=== PATIENT | male | born 1990 | race Caucasian/White ===

== ENCOUNTER 2018-05-06 11:31 | Inpatient (IN) ==
[2018-05-06] MEDS: Ketorolac 30 MG/ML VIAL IVP PRN ×2 (14:54→20:56)
--- NOTE | 2018-05-06 16:40 | Pulmonology Consult Note ---
Date of Encounter: 05/06/18 Time of Encounter: 15:45 Assessment and Plan (1) Pneumothorax, acute Current Visit: Yes Status: Acute Patient with spontaneous pneumothorax and I have seen him and examined him in the presence of the nurse and also his family and advised him this is life- threatening if it does not get treated especially with tension pneumothorax and at this time is connected to the chest tube chamber and stat CT chest was done and reviewed with evidence of pneumothorax to continue chest tube on suction at this time and we may need to consult cardiothoracic if his pneumothorax does not improve. He also may need a larger chest tube if no improvement. No evidence of acute distress and suspect there is underlying emphysema and he will need alpha- 1 antitrypsin level to be checked when he is stable and will start him on bronchodilators. This was discussed with primary team and thank you for consultation. (2) Tobacco abuse Current Visit: Yes Status: Chronic Advised patient to quit smoking. (3) Tobacco abuse counseling Current Visit: Yes Status: Chronic History of Present Illness Consult date: 05/06/18 Requesting physician: Jose Luis Lewis Reason for consult: pneumothorax Chief complaint: Spontaneous pneumothorax History of present illness: This is 27 years old male with significant history of smoking tobacco and he is poor historian all presented to the hospital after he was found to have spontaneous pneumothorax and he stated he had severe chest pain with dyspnea and was not able to breathe and he went to [facility] where he had a chest tube placed and he then signed AGAINST MEDICAL ADVICE and went home on a flutter valve and subsequently he was admitted to [facility]. When I saw him he had his chest tube in place and then I connected his chest tube to water chest tube atrium and there was significant air leak in the beginning. Patient denies any significant chest pain at this time and he denies any previous history of spontaneous pneumothorax. He denies any significant wheezing and no history of trauma. He denies any significant productive cough. Past Med Surg Social Fam HX - Past Medical History Medical history: hepatitis Psychiatric history: bipolar, schizophrenia - Past Surgical History Additional surgical history: B/L knees, face and neck - Social History Smoking Status: Current every day smoker Packs per day: 1/4 Smokeless Tobacco Status: No Alcohol use: occasionally Drug use: none - Family History Mother History Unknown: Yes Father Living Status: Still Living Hx Family Endocrine Disorder: Yes (DM) Medications and Allergies Allergy/AdvReac Type Severity Reaction Status Date / Time Amoxicillin Allergy Unknown See Verified 05/06/18 14:45 Comments All Systems: The remainder of the systems were reviewed and are negative Physical Examination Vital Signs: Vital Signs, Last 4 Hours Temp Pulse Resp BP Pulse Ox 05/06/18 15:57 97.7 F 105 16 131/79 100 05/06/18 13:29 98.7 F 86 18 126/56 99 General: Patient is in no acute distress. HEENT: Normocephalic atraumatic, pupils are equal round and reactive to light and accommodation, anicteric sclera, nares is patent, mucous membranes moist, no JVD, trachea is midline Cardiovascular: Normal sinus rhythm, S1 and S2 audible, no murmur or rubs Respiratory: Clear to auscultation in the left side and diminished mainly in the upper lung zone in the right side. No acute distress. No wheezing. Patient not using accessory muscles. Small bore chest tube anteriorly in the right side. Abdomen: Soft, nontender, nondistended, positive bowel sounds in all 4 quadrants Extremities: Warm, dry, no lower extremity edema. Normal capillary refill. Neuro: Alert and oriented and follows commands. Grossly no neuro deficits. Skin: Warm to touch : No obvious abnormalities. Psych: Normal Results - Diagnostic Findings CT scan - chest: report reviewed, image reviewed - Clinical Findings Intake & Output: Intake & Output 05/06/18 05/06/18 05/06/18 07:59 15:59 23:59 Weight 68.5 kg Consult Discharge Plan - Plan Referrals: NONE,PCP [Primary Care Provider] -
[2018-05-06] MEDS ORDERED: Naloxone 0.4 MG/ML INJ IVP PRN (16:49)
[2018-05-06 18:28] LABS: Amphetamine Screen,Urine Positive ng/mL (Cutoff=1000); Barbiturate Screen,Urine Negative ng/mL (Cutoff=200); Benzodiazepines Screen,Urine Negative ng/mL (Cutoff=200); Cannabinoid Screen,Urine Negative ng/mL (Cutoff = 50); Cocaine Screen,Urine Negative ng/mL (Cutoff= 300); Opiate Screen,Urine Positive ng/mL (Cutoff=300); Phencyclidine Screen,Urine Negative ng/mL (Cutoff=25)
--- NOTE | 2018-05-06 19:24 | Internal Med History&Physical ---
Date of Encounter: 05/06/18 Time of Encounter: 16:00 Internal Medicine - H&P: HPI Admitted From: Hospital to Hospital Transfer Plans for Post Hospital Care: Home History of present illness: Patient is a 27-year-old male with IV drug abuse history and a smoker who presents from [facility] for management of spontaneous pneumothorax. Patient reports of a one-day history of sudden right chest pain which is worse with inspiration and is intermittent. Patient was concerned so decided to go to the ER for evaluation. At [facility], patient was found to have a pneumothorax where he had a chest tube placed and he then signed AGAINST MEDICAL ADVICE and went home on a flutter valve and subsequently he was admitted to [facility]. Pulmonology consulted for recommendations after patients arrival here to [facility]. Past Med Surg Social Fam HX - Past Medical History Medical history: hepatitis Psychiatric history: bipolar, schizophrenia - Past Surgical History Additional surgical history: B/L knees, face and neck - Social History Smoking Status: Current every day smoker Packs per day: / Smokeless Tobacco Status: No Alcohol use: occasionally Drug use: none - Family History Mother History Unknown: Yes Father Living Status: Still Living Hx Family Endocrine Disorder: Yes (DM) Internal Medicine - H&P: Meds Allergy/AdvReac Type Severity Reaction Status Date / Time Amoxicillin Allergy Unknown See Verified 05/06/18 14:45 Comments All Systems PM: A 10-system review of systems was performed and is negative for pertinent findings except as documented above in the HPI. - Constitutional Vitals: Temp Pulse Resp BP Pulse Ox 97.7 F 105 16 131/79 100 05/06/18 15:57 05/06/18 15:57 05/06/18 15:57 05/06/18 15:57 05/06/18 15:57 General appearance: Present: A&O X 3, no acute distress Exam: As above - Eye Eye exam: Present: normal appearance - ENT ENT exam: Present: mucous membranes moist - Respiratory Respiratory exam: Present: CTAB. Absent: accessory muscle use, rales, rhonchi, wheezes - Cardiovascular Cardiovascular exam: Present: RRR, +S1, +S2. Absent: diastolic murmur, gallop, rubs, systolic murmur - GI/Abdominal GI/Abdominal exam: Present: normal bowel sounds, soft, no peritoneal signs. Absent: distended, tenderness - Extremities Exam Extremities exam: Absent: pedal edema - Neurological Exam Neurological exam: Present: oriented X3 - Psychiatric Psychiatric exam: Present: agitated - Skin Skin exam: Present: normal color Internal Med - H&P Results - Impressions ITS Impressions Chest CT 05/06/18 15:15 IMPRESSION: Small to moderate size right pneumothorax. Thin bore right chest tube is present and terminates in the anterior pleural space. D/ / Gabino Ha MD / Gabino Ha MD Interpreting Provider: Gabino Ha MD - Assessment and plan (1) Pneumothorax, acute Current Visit: Yes Status: Acute Assessment and plan: CT of the chest revealed evidence of pneumothorax Pulmonology consulted with recommendations to continue chest tube on suction Consideration for consult to cardiothoracic specialist if pneumothorax does not improve (2) Methamphetamine abuse Current Visit: Yes Status: Acute Assessment and plan: Patient urine drug tox screen positive for amphetamines We will be careful with opioid medications due to history of drug abuse (3) Tobacco abuse Current Visit: Yes Status: Chronic Assessment and plan: Smoking cessation - Time Spent With Patient Total time spent is greater than 50% in coordination of care (as documented) at patient's floor/unit and/or counseling patient:
[2018-05-06] MEDS: Ipratropium/Albuterol Neb 3 ML IH SCH (22:13)
[2018-05-07] MEDS: Ipratropium/Albuterol Neb 3 ML IH SCH ×3 (04:07→16:24)
[2018-05-07] MEDS: Ketorolac 30 MG/ML VIAL IVP PRN ×2 (05:49→15:13)
[2018-05-07 05:58] LABS: Basophils % 0.3 %; Eosinophils # 0.3 K/mcL (0.0-0.6); Eosinophils % 3.4 %; Hematocrit 42.4 % (37.5-50.1); Hemoglobin 14.8 g/dL (12.9-16.9); Immature Granulocytes % 0.1 % (0-4); Lymphocytes # 2.3 K/mcL (0.6-4.6); Lymphocytes % 31.6 %; Mean Corpuscular HGB Conc 34.9 g/dL (31.6-35.5); Mean Corpuscular Hemoglobin 29.9 pg (28.0-33.3); Mean Corpuscular Volume 85.7 fL (83.0-100.0); Mean Platelet Volume 10.8 fL (9.4-12.4); Monocytes # 0.9 K/mcL (0.0-1.3); Neutrophils # 3.9 K/mcL (1.6-8.9); Platelet Count 177 K/mcL (140-400); Red Blood Count 4.95 M/mcL (4.19-5.50); Red Cell Distribution Width 12.5 % (11.5-14.5); Segmented Neutrophils % 52.6 %
[2018-05-07 06:15] LABS: BUN/Creatinine Ratio 13 (6-26); Blood Urea Nitrogen 9 mg/dL (6-20); Calcium 9.3 mg/dL (8.6-10.3); Carbon Dioxide 26 mEq/L (23-29); Chloride 106 mEq/L (98-107); Glucose 91 mg/dL (70-105); Osmolality,Calculated 284 (280-300); Potassium 3.7 mEq/L (3.5-5.1); Sodium 138 mEq/L (136-145); eGFR For Non-African Americans > 60 (> 60)
--- NOTE | 2018-05-07 08:30 | Pulmonology Progress Note ---
<Ariana Pierson - Last Filed: 05/07/18 20:14> Date of Encounter: 05/07/18 Time of Encounter: 10:30 Assessment and Plan (1) Pneumothorax, acute Current Visit: Yes Status: Acute Afebrile, hemodynamically stable, SpO2 100% RA Chest tube hooked to wall suction Right chest tube shows small amount of purulent material within catheter Paraseptal emphysema is a possible etiology CT Chest 05/06: small to moderate right pneumothorax, small bore catheter in right anterior pleural space CXR #1 05/07: increased right apical pneumothorax 2.1cm --> 4.6cm, no pleural effusion or new focal consolidation CXR #2 05/07: slight decrease in right apical pneumothorax Plan: Dr. Glasgow of CT surgery consulted and will see this patient, recommendations appreciated Repeat CXR tomorrow morning (2) Tobacco abuse Current Visit: Yes Status: Chronic Subjective Principal diagnosis: spontaneous pneumothorax, right sided Interval history: Seen and examined at bedside. Female visitor left room just prior to my arrival. Denies shortness of breath or difficulty breathing; no fevers or chills. Reports chest pain which he relates to position of his chest tube. He is upset to learn his pneumothorax has increased in size on this morning's CXR as compared to yesterday's chest CT--patient states he will just leave if we aren't doing anything to help fix his pneumothorax and are only making it worse. He is frustrated that a second chest tube or chest tube of larger size may be needed and is angry the correctly sized chest tube wasn't inserted in the first place. I explained that if he were to leave AMA he risks worsening pneumothorax and may vary well as a result. Objective PUL Vital signs: Last Vital Signs Temp 98.1 F 05/07/18 06:45 Pulse 78 05/07/18 06:45 Resp 17 05/07/18 06:45 BP 128/73 05/07/18 06:45 Pulse Ox 99 05/07/18 06:45 General appearance: no acute distress, alert Eyes: nonicteric ENT: oropharynx moist Neck: supple Effort: normal Auscultation: right: diminished breath sounds, bilateral: clear Cardiovascular: regular rate and rhythm Gastrointestinal: normoactive bowel sounds Extremities: no cyanosis, no edema, pink and warm normal mental status, non-focal exam, pupils equal and round, CN II-XII normal Results - Laboratory Findings CBC and BMP: 05/07/18 05:43 05/07/18 05:43 Abnormal lab findings: Abnormal lab results Urine Opiates Screen Positive ng/mL (Uuxhhu=[id number]) H 05/06/18 18:14 Ur Amphetamines Screen Positive ng/mL (Kryjqd=[id number]) H 05/06/18 18:14 Consult Discharge Plan - Plan Referrals: NONE,PCP [Primary Care Provider] - <Courtney Walker - Last Filed: 05/08/18 13:03> Assessment and Plan (1) Pneumothorax, acute Current Visit: Yes Status: Acute (2) Tobacco abuse Current Visit: Yes Status: Chronic (3) Tobacco abuse counseling Current Visit: Yes Status: Chronic Objective PUL Vital signs: Last Vital Signs Temp 97.4 F L 05/07/18 11:02 Pulse 87 05/07/18 11:02 Resp 16 05/07/18 11:02 BP 127/76 05/07/18 11:02 Pulse Ox 100 05/07/18 11:02 Results - Laboratory Findings CBC and BMP: 05/07/18 05:43 05/07/18 05:43 Abnormal lab findings: Abnormal lab results Urine Opiates Screen Positive ng/mL (Dbyear=329) H 05/06/18 18:14 Ur Amphetamines Screen Positive ng/mL (Wwabag=[id number]) H 05/06/18 18:14 - Clinical Findings Intake & Output: Intake & Output 05/06/18 05/07/18 05/07/18 23:59 07:59 15:59 Intake Total 120 / 120 Balance 120 / 120 - Attending Attestation Patient was seen on 05/07/2018 and addendum was done 05/08/2018 I examined this patient and my medical decision-making was reviewed with the Resident Physician. I agree with the documented findings, disposition and treatment plan as described except to the extent set forth below. Patient seen and examined. Labs, radiology, chart personally reviewed. Agree with resident's history and physical, assessment, plan with following comments: [employer]: Patient follows commands, Pulmonary: Acceptable oxygenation and ventilation. Patient still requiring chest tube and need suction since he did not tolerate waterseal. A trial of waterseal was done and it showed evidence of worsening of his pneumothorax and he was placed back on suction and repeat chest x-ray showed some improvement. Patient is asking to go home and to remove his chest tube and explained to him that is not advisable and this could be fatal. Cardiothoracic was consulted.
[2018-05-07] MEDS: OXYCODONE Oral CONC 10 MG/0.5 ML ORAL.SYG SL PRN ×3 (10:45→23:54)
[2018-05-07] MEDS: Sulfamethoxazole/Trimeth DS 1 EACH TABLET PO SCH ×2 (11:31→21:27)
--- NOTE | 2018-05-07 11:51 | Internal Med Progress Note ---
Hospitalist Progress Note - Encounter Date of Encounter: 05/07/18 Time of Encounter: 11:45 - Subjective Interval History: Patient is a 27-year-old male with IV drug abuse history and a smoker who presents from [facility] for management of spontaneous pneumothorax. Patient reports of a one-day history of sudden right chest pain which is worse with inspiration and is intermittent. Patient was concerned so decided to go to the ER for evaluation. At [place] [facility], patient was found to have a pneumothorax where he had a chest tube placed and he then signed AGAINST MEDICAL ADVICE and went home on a flutter valve and subsequently he was admitted to [facility]. Pulmonology consulted for recommendations after patients arrival here to [facility]. Patient was admitted on 05/06, he has right chest tube placed, pulmonary was consulted, chest x-ray showed a worsening pneumothorax from 2.1 cm up to 4.6 cm. Pulmonary consulted to Dr. Glasgow CT surgery for further recommendations. Patient is very agitated this morning, he complains of chest pain from chest tube 10 out of 10 since 3 AM persistently. IV Toradol is not working. He wants to remove the chest tube, and leave against medical advance, I discussed the risk of from worsening pneumothorax by leave AMA, And discussed with pain control using oral oxycodone he agrees tostay and gets 2nd CXR.. - Exam Vitals: Temp Pulse Resp BP Pulse Ox 97.4 F L 87 16 127/76 100 05/07/18 11:02 05/07/18 11:02 05/07/18 11:02 05/07/18 11:02 05/07/18 11:02 Exam: CONSTITUTIONAL: patient appears as an age appropriate male in no acute distress. EYES Clear sclerae, bilateral pupils are equal, reactive to light. EMOI. RESPIRATORY: No accessory muscle use, bilateral clear to auscultation, no wheezing, no crackles/rales. CARDIOVASCULAR: Regular heart rate, normal S1 and S2, no murmurs GASTROINTESTINAL: bowel sounds present, soft, no tenderness. MUSCULOSKELETAL: Joints in normal range of motion, no clubbing, no edema, no cyanosis. Bilateral peripheral pulses 2+. NEUROLOGIC: CN II to XII are grossly intact, no focal neurological deficit. - Assessment and Plan (1) Pneumothorax, acute Current Visit: Yes Status: Acute Assessment and Plan: Complaining of chest pain from chest tube area, pulmonary is following and the CT surgery is consulted as well CT Chest 05/06: small to moderate right pneumothorax, small bore catheter in right anterior pleural space CXR this moring showed increased right apical pneumothorax 2.1cm --> 4.6cm, patient is on RA Pain control, add oral oxycodone (2) Tobacco abuse Current Visit: Yes Status: Chronic Assessment and Plan: add nicotine patch (3) Methamphetamine abuse Current Visit: Yes Status: Acute (4) Open wound of right hand Current Visit: Yes Status: Acute Assessment and Plan: draing clear fluid, add bactrim to prevent infection, he is able to move finger joint - Time Spent with Patient Total time spent is greater than 50% in coordination of care (as documented) at patient's floor/unit and/or counseling patient: 25 - 35 minutes Internal Medicine: Result - Labs CBC & Chem 7: 05/07/18 05:43 05/07/18 05:43 Labs: Short CBC 05/07/18 Range/Units 05:43 WBC 7.3 (4.3-11.1) K/mcL Hgb 14.8 (12.9-16.9) g/dL Hct 42.4 (37.5-50.1) % Plt Count 177 (140-400) K/mcL Neutrophils # 3.9 (1.6-8.9) K/mcL BMP 05/07/18 05:43 Sodium 138 Potassium 3.7 Chloride 106 Carbon Dioxide 26 BUN 9 Creatinine 0.72 Glucose 91 Calcium 9.3 - Impressions Impressions Chest CT 05/06/18 15:15 IMPRESSION: Small to moderate size right pneumothorax. Thin bore right chest tube is present and terminates in the anterior pleural space. D/ / Gabino Ha MD / Gabino Ha MD Interpreting Provider: Gabino Ha MD Chest X-Ray 05/07/18 07:40 IMPRESSION: Right apical pneumothorax minimally increased in size when compared to the prior CT measuring up to 4.6 cm from the right apex, previously 2.1 cm. D/ / Amber Gage MD / Amber Gage MD Interpreting Provider: Amber Gage MD Chest X-Ray 05/07/18 10:08 IMPRESSION: Slight decrease in the right apical pneumothorax D/ / Jose Angel Wiseman MD / Jose Angel Wiseman MD Interpreting Provider: Jose Angel Wiseman MD Consult Discharge Plan - Plan Referrals: NONE,PCP [Primary Care Provider] - (4) Open wound of right hand Qualifiers: Encounter type: initial encounter Open wound type: unspecified Foreign body presence: unspecified Qualified Code(s): S61.401A - Unspecified open wound of right hand, initial encounter
--- NOTE | 2018-05-07 13:14 | Cardiothoracic Consult Note ---
Date of Encounter: 05/07/18 Time of Encounter: 13:11 Assessment and Plan (1) Pneumothorax, acute Current Visit: Yes Status: Acute The assessment and plan as outlined above was discussed with the patient and/or family members who expressed understanding and agreement. All questions were answered. As this is the patient's first episode of pneumothorax, he can be treated with chest tube suction and medical management. I did strongly recommended that the patient quit smoking. Surgery would be recommended if the patient had a second episode of pneumothorax or if the air leak is prolonged and would not seal with conservative management. A second chest tube might be helpful, but the patient is refusing this. He also is refusing surgery and states that he wants to remove the chest tube and leave AGAINST MEDICAL ADVICE. I warned him that this would be very dangerous and might result in sudden . At this point, he is doing well with his chest tube to suction and I would continue with the present therapy. I did recommend that the chest tube the set to 25 cm of continuous suction. - History of Present Illness History of present illness: Mr. Holt is a 27 year old male The patient is a 27-year-old gentleman with a history of IV drug abuse. His drug screen upon admission was positive for amphetamines and opiates. He states that he does abuse IV drugs. He was seen at an outside hospital with a right spontaneous pneumothorax. This was his first episode. A chest tube was placed, but the patient left the hospital AGAINST MEDICAL ADVICE. CT scan of the chest done here does not reveal any large blebs. Chest x-ray with the chest tube in place reveals a small to moderate right pneumothorax at the apex. The patient continues to smoke one to 2 packs of cigarettes per day prior to admission AGAINST MEDICAL ADVICE. Past Med Surg Social Fam HX - Past Medical History Medical history: hepatitis Psychiatric history: bipolar, schizophrenia - Past Surgical History Additional surgical history: B/L knees, face and neck - Social History Smoking Status: Current every day smoker Packs per day: 1/ Smokeless Tobacco Status: No Alcohol use: occasionally Drug use: none - Family History Mother History Unknown: Yes Father Living Status: Still Living Hx Family Endocrine Disorder: Yes (DM) Medications and Allergies No Known Home Drugs 05/06/18 [History] Allergy/AdvReac Type Severity Reaction Status Date / Time Amoxicillin Allergy Unknown See Verified 05/06/18 14:45 Comments All Systems Review: The remainder of the systems were reviewed and are negative Physical Examination Vital Signs, Last 4 Hours Temp Pulse Resp BP Pulse Ox 05/07/18 11:02 97.4 F L 87 16 127/76 100 O2 saturation is 100% on room air. Lungs are clear to percussion and aus cultation. Heart is in a regular rate and rhythm. The chest tube has minimal drainage. There is a small air leak that is intermittent. Chest x-ray reveals a small to moderate right apical pneumothorax. Results 05/07/18 05:43 05/07/18 05:43 Lab Results, Last 24 hours 05/07/18 05/07/18 05:43 05:43 WBC 7.3 Hgb 14.8 Hct 42.4 Plt Count 177 Sodium 138 Potassium 3.7 Chloride 106 Carbon Dioxide 26 BUN 9 Creatinine 0.72 Glucose 91 Calcium 9.3 Consult Discharge Plan - Plan Referrals: NONE,PCP [Primary Care Provider] -
[2018-05-08] MEDS ORDERED: Ondansetron 4 MG/2 ML VIAL IVP ONE (00:17)
[2018-05-08] MEDS: Sulfamethoxazole/Trimeth DS 1 EACH TABLET PO SCH ×2 (08:20→20:51)
--- NOTE | 2018-05-08 08:41 | Cardiothoracic Progress Note ---
Date of Encounter: 05/08/18 Time of Encounter: 08:39 - Assessment and plan (1) Pneumothorax, acute Current Visit: Yes Status: Acute We will leave the chest tube to suction. Hopefully, we can place it to waterseal in 1-2 days. - Subjective Interval history: The patient has no complaints and is resting comfortably. Vital Signs, Last 4 Hours Temp Pulse Resp BP Pulse Ox 05/08/18 06:51 97.7 F 74 18 121/73 99 Clinical Data, last 8 Hours Output, Chest Tube Drainage 8 Amount [Right Upper Anterior Chest] Output, Chest Tube Drainage 8 Amount [Right Upper Anterior Chest] Weight 05/06/18 05/07/18 05/08/18 23:59 23:59 23:59 Weight 68.5 kg 70.942 kg Lungs are clear to percussion and auscultation. Heart is in a normal sinus rhythm. His chest tube has minimal drainage and I do not see an air leak this morning. Chest x-ray reveals an improved, apical right pneumothorax. This is small. - Labs 05/07/18 05:43 05/07/18 05:43 Consult Discharge Plan - Plan Referrals: NONE,PCP [Primary Care Provider] -
--- NOTE | 2018-05-08 09:00 | Pulmonology Progress Note ---
<Ariana Pierson - Last Filed: 05/08/18 10:11> Date of Encounter: 05/08/18 Time of Encounter: 09:25 Assessment and Plan (1) Pneumothorax, acute Current Visit: Yes Status: Acute Resolving Afebrile, hemodynamically stable, SpO2 97-100% overnight CXR #2 05/07: R sided apical pneumothorax, 3.7 cm between visceral and parietal pleura CXR 05/08: R sided apical pneumothorax, distance between visceral and parietal pleura now 2 cm; no acute consolidation or effusion CT surgery following Plan: 1. Continue chest tube to wall suction and switch to water seal in 1-2 d, as per CT surgery recs 2. Consult appreciated, please call if any other questions (2) Tobacco abuse Current Visit: Yes Status: Chronic Subjective Principal diagnosis: spontaneous pneumothorax, right sided Interval history: Seen and examined this morning. Patient sleeping comfortably in his bed. Results of morning CXR shared, his pneumothorax is improving. No stated complaints--denies shortness of breath, chest pain, abdominal pain, fevers, chills, leg pain. He feels like he is breathing well. Objective PUL Vital signs: Last Vital Signs Temp 97.7 F 05/08/18 06:51 Pulse 74 05/08/18 06:51 Resp 18 05/08/18 06:51 BP 121/73 05/08/18 06:51 Pulse Ox 99 05/08/18 06:51 General appearance: no acute distress, asleep Eyes: nonicteric ENT: oropharynx moist Neck: supple Effort: normal (no wheezing, rhonchi, or rales) Auscultation: bilateral: clear Cardiovascular: regular rate and rhythm Gastrointestinal: soft, non-tender, non-distended Integumentary: normal Extremities: no cyanosis, no edema, no clubbing, pink and warm, other (LE nontender to palpation) Musculoskeletal: no deformities normal mental status, non-focal exam, pupils equal and round, CN II-XII normal mood appropriate, affect normal Results - Laboratory Findings CBC and BMP: 05/07/18 05:43 05/07/18 05:43 Abnormal lab findings: Abnormal lab results Urine Opiates Screen Positive ng/mL (Vdciys=498) H 05/06/18 18:14 Ur Amphetamines Screen Positive ng/mL (Luywfv=[id number]) H 05/06/18 18:14 - Clinical Findings Intake & Output: Intake & Output 05/07/18 05/08/18 05/08/18 23:59 07:59 15:59 Output Total Balance - / -1 - / - - Weight 70.942 kg Consult Discharge Plan - Plan Referrals: NONE,PCP [Primary Care Provider] - <Courtney Walker - Last Filed: 05/08/18 12:55> Assessment and Plan (1) Pneumothorax, acute Current Visit: Yes Status: Acute (2) Tobacco abuse Current Visit: Yes Status: Chronic (3) Tobacco abuse counseling Current Visit: Yes Status: Chronic Objective PUL Vital signs: Last Vital Signs Temp 98.0 F 05/08/18 10:57 Pulse 70 05/08/18 10:57 Resp 17 05/08/18 10:57 BP 126/73 05/08/18 10:57 Pulse Ox 98 05/08/18 10:57 Results - Laboratory Findings CBC and BMP: 05/07/18 05:43 05/07/18 05:43 Abnormal lab findings: Abnormal lab results Urine Opiates Screen Positive ng/mL (Gmrjhk=802) H 05/06/18 18:14 Ur Amphetamines Screen Positive ng/mL (Rzztqb=[id number]) H 05/06/18 18:14 - Clinical Findings Intake & Output: Intake & Output 05/07/18 05/08/18 05/08/18 23:59 07:59 15:59 Output Total Balance - / -1 - / - - Weight 70.942 kg - Attending Attestation I examined this patient and my medical decision-making was reviewed with the Resident Physician. I agree with the documented findings, disposition and treatment plan as described except to the extent set forth below. Patient seen and examined. Labs, radiology, chart personally reviewed. Agree with resident's history and physical, assessment, plan with following comments: GOLD CHARMER: Patient follows commands, Pulmonary: Acceptable oxygenation and ventilation. Patient continued to have pneumothorax and some improvement. Clinically patient denies any significant symptoms and appreciate cardiothoracic recommendations. Please call for any questions.
[2018-05-08] MEDS ORDERED: Ipratropium/Albuterol Neb 3 ML IH PRN (09:27)
[2018-05-08] MEDS: OXYCODONE Oral CONC 10 MG/0.5 ML ORAL.SYG SL PRN (14:07)
--- NOTE | 2018-05-08 14:28 | Internal Med Progress Note ---
Hospitalist Progress Note - Encounter Date of Encounter: 05/08/18 Time of Encounter: 14:26 - Subjective Interval History: Pt denies fever, chills, N/V, abdominal pain, diarrhea, chest pain or SOB. - Exam Vitals: Temp Pulse Resp BP Pulse Ox 98.0 F 70 17 126/73 98 05/08/18 10:57 05/08/18 10:57 05/08/18 10:57 05/08/18 10:57 05/08/18 10:57 Exam: Physical exam: CONSTITUTIONAL: patient appears as an age appropriate male in no acute distress. EYES Clear sclerae, bilateral pupils are equal, reactive to light. EMOI. RESPIRATORY: No accessory muscle use, bilateral clear to auscultation, no wheezing, no crackles/rales. CARDIOVASCULAR: Regular heart rate, normal S1 and S2, no murmurs GASTROINTESTINAL: bowel sounds present, soft, no tenderness. MUSCULOSKELETAL: Joints in normal range of motion, no clubbing, no edema, no cyanosis. Bilateral peripheral pulses 2+. NEUROLOGIC: CN II to XII are grossly intact, no focal neurological deficit. - Assessment and Plan (1) Pneumothorax, acute Current Visit: Yes Status: Acute Assessment and Plan: CT of the chest revealed evidence of pneumothorax Pulmonology consulting with recommendations to continue chest tube on suction Cardiothoracic specialist on board and states to leave CT in and place it to water seal in 1 to 2 days. (2) Tobacco abuse Current Visit: Yes Status: Chronic Assessment and Plan: Smoking cessation (3) Methamphetamine abuse Current Visit: Yes Status: Acute Assessment and Plan: Patient urine drug tox screen positive for amphetamines We will be careful with opioid medications due to history of drug abuse DVT Prophylaxis: Pt ambulatory but will also add SCD - Summary of Assessment and Plan Summary of Assessment and Plan: History of present illness: Patient is a 27-year-old male with IV drug abuse history and a smoker who presen ts from [facility] for management of spontaneous pneumothorax. Patient reports of a one-day history of sudden right chest pain which is worse with inspiration and is intermittent. Patient was concerned so decided to go to the ER for evaluation. At [facility], patient was found to have a pneumothorax where he had a chest tube placed and he then signed AGAINST MEDICAL ADVICE and went home on a flutter valve and subsequently he was admitted to [facility]. Pulmonology consulted for recommendations after patients arrival here to [facility]. - Time Spent with Patient Total time spent is greater than 50% in coordination of care (as documented) at patient's floor/unit and/or counseling patient: less than 15 minutes Plan of Care Discussed with: patient Internal Medicine: Result - Labs CBC & Chem 7: 05/07/18 05:43 05/07/18 05:43 - Impressions Impressions Chest X-Ray 05/08/18 00:01 IMPRESSION: 1. Stable position of a right hemithorax pleural catheter. 2. Mild persistent improved right pneumothorax. D/ / 05/08/2018 07:57:15 Alfredo Rachel MD / reg Interpreting Provider: Alfredo Rachel MD Consult Discharge Plan - Plan Referrals: NONE,PCP [Primary Care Provider] -
[2018-05-08] MEDS: Ketorolac 30 MG/ML VIAL IVP PRN (20:55)
--- NOTE | 2018-05-09 08:48 | Cardiothoracic Progress Note ---
Date of Encounter: 05/09/18 Time of Encounter: 08:16 - Assessment and plan (1) Pneumothorax, acute Current Visit: Yes Status: Acute The right spontaneous pneumothorax is resolving with the chest tube in place. There is no air leak. The chest tube was placed to waterseal today and the chest x-ray repeated in the morning. If the chest x-ray shows a stable right apical pneumothorax or decrease in size, the chest tube will be removed. The assessment and plan as outlined above was discussed with the patient and/or family members who expressed understanding and agreement. All questions were answered. - Subjective Interval history: The patient is resting comfortably in his hospital bed. He has no complaints. Vital Signs, Last 4 Hours Temp Pulse Resp BP Pulse Ox 05/09/18 07:10 97.9 F 63 20 108/73 97 Weight 05/07/18 05/08/18 05/09/18 23:59 23:59 23:59 Weight 70.942 kg 71 kg - Physical Examination General: Conversant, No Apparent Distress Neck: No JVD, Normal carotid pulses Cardiac: Reg Rate and Rhythm, Normal S1 and S2, No Murmur Incision: No signs of infection, Dry/intact dressing Chest tubes: Minimal drainage, Other (No air leak) Lungs: Normal Breath Sounds, No Wheeze, Rales, Rhonchi Neuro: Alert and responsive, No focal deficits noted Vascular: Normal capillary refill Musculoskeletal: No Chest Wall Tenderness Extremities: No Clubbing, No Cyanosis, No Edema, Normal Pulses - Labs 05/07/18 05:43 05/07/18 05:43 - Imaging Chest Xray: image reviewed (Small right apical pneumothorax, slightly decreased in size.) Consult Discharge Plan - Plan Referrals: NONE,PCP [Primary Care Provider] -
[2018-05-09] MEDS: Sulfamethoxazole/Trimeth DS 1 EACH TABLET PO SCH ×2 (11:01→21:27)
[2018-05-09] MEDS: OXYCODONE Oral CONC 10 MG/0.5 ML ORAL.SYG SL PRN ×2 (11:12→21:21)
--- NOTE | 2018-05-09 14:02 | Internal Med Progress Note ---
<Jalen Mabry - Last Filed: 05/09/18 14:42> Hospitalist Progress Note - Encounter Date of Encounter: 05/09/18 Time of Encounter: 10:20 - Exam Vitals: Temp Pulse Resp BP Pulse Ox 97.9 F 77 20 104/61 96 05/09/18 10:57 05/09/18 10:57 05/09/18 10:57 05/09/18 10:57 05/09/18 10:57 - Assessment and Plan (1) Pneumothorax, acute Current Visit: Yes Status: Acute (2) Tobacco abuse Current Visit: Yes Status: Chronic (3) Methamphetamine abuse Current Visit: Yes Status: Acute - Time Spent with Patient Total time spent is greater than 50% in coordination of care (as documented) at patient's floor/unit and/or counseling patient: Internal Medicine: Result - Labs CBC & Chem 7: 05/07/18 05:43 05/07/18 05:43 - Impressions Impressions Chest X-Ray 05/09/18 00:01 IMPRESSION: Decreased size of right-sided pneumothorax. D/ / Anjel Hancock MD / Anjel Hancock MD Interpreting Provider: Anjel Hancock MD Consult Discharge Plan - Plan Referrals: NONE,PCP [Primary Care Provider] - - Attending Attestation I saw evaluated and examined this patient and my medical decision-making was reviewed with the Resident Physician, Summer Srivastava. I agree with the documented findings, disposition and treatment plan as described except to any changes set forth below. We independently had [id number] contact with the patient. Patient is somnolent but easily awakes. Denies any new complaints at this time. No chest pain. No palpitations. Does have some cough. On examination, patient is awake and alert. Heart sounds are normal. Breath sounds are normal. Patient has right-sided chest tube in place. Abdomen is soft, nontender. Right-sided spontaneous pneumothorax: Status post chest tube placement. Currently connected to water seal. Current thoracic surgery following. Plan for discharge tomorrow if repeat chest x-ray shows stable or decreases in size of pneumothorax. Moderate risk for complications. <Summer Srivastava Last Filed: 05/09/18 16:10> Hospitalist Progress Note - Encounter Date of Encounter: 05/09/18 Time of Encounter: 01:00 - Subjective Interval History: Mr. Holt is a 27 year old male who was seen at bedside today. HE does not complain of any pain and states he does still have a slight cough but is not briging anything up. - Exam Vitals: Temp Pulse Resp BP Pulse Ox 97.9 F 77 20 104/61 96 05/09/18 10:57 05/09/18 10:57 05/09/18 10:57 05/09/18 10:57 05/09/18 10:57 Exam: General: AAOx3, answers qeustions appropriately HEart: RRR, no murmurs, rubs or gallops Pulm: CTAB, no wheezes or rhonchi Abd: bowel sounds present, no tenderness to palpation, no gaurding/rigidity Skin: warm, dry, intact - Assessment and Plan (1) Pneumothorax, acute Current Visit: Yes Status: Acute Assessment and Plan: CT of the chest revealed evidence of pneumothorax Pulmonology consulting with recommendations chest tube to water seal CXR in morning, if smaller or bridget same chest tube will be removed. (2) Tobacco abuse Current Visit: Yes Status: Chronic Assessment and Plan: Smoking cessation (3) Methamphetamine abuse Current Visit: Yes Status: Acute Assessment and Plan: Patient urine drug tox screen positive for amphetamines We will be careful with opioid medications due to history of drug abuse DVT Prophylaxis: Pt ambulatory, SCDs - Time Spent with Patient Total time spent is greater than 50% in coordination of care (as documented) at patient's floor/unit and/or counseling patient: Internal Medicine: Result - Labs CBC & Chem 7: 05/07/18 05:43 05/07/18 05:43 - Impressions Impressions Chest X-Ray 05/09/18 00:01
[2018-05-09] MEDS: Ketorolac 30 MG/ML VIAL IVP PRN (17:53)
--- NOTE | 2018-05-10 07:33 | Cardiothoracic Progress Note ---
Date of Encounter: 05/10/18 Time of Encounter: 07:31 - Assessment and plan (1) Pneumothorax, acute Current Visit: Yes Status: Acute We will put the chest tube back to 25 cm of suction. I discussed a possible second chest tube, but the patient is refusing this. I told the patient that if he needs AGAINST MEDICAL ADVICE and removes the chest tube, he could . - Subjective Interval history: The patient has no complaints. He states that he wants to leave today and may do so AGAINST MEDICAL ADVICE. Vital Signs, Last 4 Hours Temp Pulse Resp BP Pulse Ox 05/10/18 07:11 97.7 F 78 16 123/74 97 Weight 05/08/18 05/09/18 05/10/18 23:59 23:59 23:59 Weight 71 kg 74.4 kg Lungs are clear to percussion and auscultation. Chest tube drainage is minimal and there is no air leak. Chest x-ray on water seal reveals a increased right pneumothorax. - Labs 05/07/18 05:43 05/07/18 05:43 Consult Discharge Plan - Plan Referrals: NONE,PCP [Primary Care Provider] -
[2018-05-10] MEDS: OXYCODONE Oral CONC 10 MG/0.5 ML ORAL.SYG SL PRN ×2 (10:43→20:46)
[2018-05-10] MEDS: Sulfamethoxazole/Trimeth DS 1 EACH TABLET PO SCH ×2 (10:43→20:46)
--- NOTE | 2018-05-10 12:30 | Internal Med Progress Note ---
<Jalen Mabry - Last Filed: 05/10/18 13:17> Hospitalist Progress Note - Encounter Date of Encounter: 05/10/18 Time of Encounter: 10:15 - Exam Vitals: Temp Pulse Resp BP Pulse Ox 98.0 F 87 16 123/79 98 05/10/18 11:15 05/10/18 11:15 05/10/18 11:15 05/10/18 11:15 05/10/18 11:15 - Assessment and Plan (1) Pneumothorax, acute Current Visit: Yes Status: Acute (2) Tobacco abuse Current Visit: Yes Status: Chronic (3) Methamphetamine abuse Current Visit: Yes Status: Acute - Time Spent with Patient Total time spent is greater than 50% in coordination of care (as documented) at patient's floor/unit and/or counseling patient: Internal Medicine: Result - Labs CBC & Chem 7: 05/07/18 05:43 05/07/18 05:43 - Impressions Impressions Chest X-Ray 05/10/18 06:00 IMPRESSION: Moderate-sized right-sided pneumothorax, increased in size since the prior study. D/ / 05/10/2018 08:24:46 Nilson Hall MD / reg Interpreting Provider: Nilson Hall MD Consult Discharge Plan - Plan Referrals: NONE,PCP [Primary Care Provider] - - Attending Attestation I saw evaluated and examined this patient and my medical decision-making was reviewed with the Resident Physician, Bob Casey. I agree with the documented findings, disposition and treatment plan as described except to any changes set forth below. We independently had [id number] contact with the patient. Patient sitting up in bed. Denies any new complaints at this time. Does have pain but is currently well controlled. Chest x-ray done today showed increase in size of right apical pneumothorax. Cardiothoracic surgery recommends another chest tube placement. However patient was refusing this at that time. I again discussed the importance of following cardiothoracic surgery recommendations. Patient reports that he will discuss with this his girlfriend and let us know. On exam, patient is awake and alert. Heart sounds are normal. Breath sounds a re decreased in right apex. Otherwise good air entry bilaterally. Acute right-sided pneumothorax: Status post right-sided chest tube placement. With increase in size of pneumothorax on today's chest x-ray. Repeat chest x- ray in morning. Follow cardiothoracic surgery recommendations. Encouraged patient to consider another chest tube placement per their recommendations. Continue pain medications. <Bob Casey - Last Filed: 05/10/18 14:30> Hospitalist Progress Note - Encounter Date of Encounter: 05/10/18 Time of Encounter: 10:20 - Subjective Interval History: Patient states pain well controlled with oxycodone, though notes SE of nausea and would like to change pain med. Prefers "medication he at [facility]" that didn't cause nausea, reviewed note only states toradol and tylenol for pain. Denies any distress, chest pain. States he would like to leave. Denies any other complaints currently. - Exam Vitals: Temp Pulse Resp BP Pulse Ox 98.0 F 87 16 123/79 98 05/10/18 11:15 05/10/18 11:15 05/10/18 11:15 05/10/18 11:15 05/10/18 11:15 Exam: General: AAOx3, answers questions appropriately HEENT: normocephalic, atraumatic, eyes normal and nonicteric, moist mucus membranes, neck supple Heart: RRR, no murmurs, rubs or gallops Pulm: CTAB, no wheezes or rhonchi. Pigtail catheter to anterior R upper chest wall, sealed and applied to suction. Abd: bowel sounds present, no tenderness to palpation, no guarding/rigidity Ext: no pedal edema Skin: warm, dry, intact - Assessment and Plan (1) Pneumothorax, acute Current Visit: Yes Status: Acute Assessment and Plan: CT of the chest revealed evidence of pneumothorax Yesterday chest tube placed to waterseal, however pneumo larger today, Chest tube placed back to suction. CT surg recommending 2nd chest tube, patient refuses. Patient has stated possiblly leaving AMA. (2) Tobacco abuse Current Visit: Yes Status: Chronic Assessment and Plan: recommend cessation (3) Methamphetamine abuse Current Visit: Yes Status: Acute Assessment and Plan: UDS positive. Caution with pain medications, patient wanting to adjust medication due to nausea. Will review options as a team, possible reduce oxycodone dose. DVT Prophylaxis: Pt ambulatory, SCDs - Summary of Assessment and Plan Summary of Assessment and Plan: History of present illness: Patient is a 27-year-old male with IV drug abuse history and a smoker who presents from [facility] for management of spontaneous pneumothorax. Patient reports of a one-day history of sudden right chest pain which is worse with inspiration and is intermittent. Patient was concerned so decided to go to the ER for evaluation. At [facility], patient was found to have a pneumothorax wher e he had a chest tube placed and he then signed AGAINST MEDICAL ADVICE and went home on a flutter valve and subsequently he was admitted to [facility]. Patient being monitored, worsening pneumothorax on imaging, CT surg rec 2nd chest tube, patient refusing. Has stated possible AMA. - Time Spent with Patient Total time spent is greater than 50% in coordination of care (as documented) at patient's floor/unit and/or counseling patient: 25 - 35 minutes Plan of Care Discussed with: patient Internal Medicine: Result - Labs CBC & Chem 7: 05/07/18 05:43 05/07/18 05:43 - Impressions Impressions Chest X-Ray 05/10/18 06:00
[2018-05-11] MEDS ORDERED: *HR* FentaNYL (PF) 100 MCG/2 ML VIAL IVP ONE (08:25)
[2018-05-11] MEDS ORDERED: *HR* Midazolam HCl 2 MG/2 ML VIAL IVP ONE (08:26)
--- NOTE | 2018-05-11 08:55 | Cardiothoracic Progress Note ---
Date of Encounter: 05/11/18 Time of Encounter: 08:52 - Assessment and plan (1) Pneumothorax, acute Current Visit: Yes Status: Acute I have convinced the patient to have an additional chest tube placed. Once this is in, the old chest tube will be removed. Operative consent was obtained. I marked the right side with my initials and placed a stop sign on the left side. The procedure, its risks, benefits and alternatives were explained and he wishes to proceed. He has no questions. - Subjective Interval history: The patient is anxious to go home. Vital Signs, Last 4 Hours Temp Pulse Resp BP Pulse Ox 05/11/18 07:52 97.9 F 92 18 108/67 98 Oxgyen Flow Rate Oxygen Flow Rate (LPM) 97 Clinical Data, last 8 Hours Output, Urine Amount 600 Weight 05/09/18 05/10/18 05/11/18 23:59 23:59 23:59 Weight 71 kg 74.4 kg Lungs have decreased breath sounds on the right. The chest tube has no drainage and no air leak. The chest x-ray reveals a worsening right pneumothorax that extends from the apex down to the base. I estimate that this is at least 50%. - Labs 05/07/18 05:43 05/07/18 05:43 Consult Discharge Plan - Plan Referrals: NONE,PCP [Primary Care Provider] -
--- NOTE | 2018-05-11 09:57 | Internal Med Progress Note ---
<Summer Srivastava E - Last Filed: 05/11/18 09:55> Hospitalist Progress Note - Encounter Date of Encounter: 05/11/18 Time of Encounter: 09:55 - Subjective Interval History: Mr. Holt is a 27 year old male who was seen at bedside today. HE does state he has soem pain in his back now on the right side. He has decided to undergo the insertion of a second chest tube due to worsening pneumothorax. Discussed with patient the importance of this and importance of outpatient follow up once he has been discharged from the hospital. Also talked with patient about drug use and smoking. Patient is willing to try to quit smoking at this time. - Exam Vitals: Temp Pulse Resp BP Pulse Ox 97.9 F 92 18 108/67 98 05/11/18 07:52 05/11/18 07:52 05/11/18 07:52 05/11/18 07:52 05/11/18 07:52 Exam: General: AAOx3, answers questions appropriately HEENT: normocephalic, atraumatic, eyes normal and nonicteric, moist mucus membranes, neck supple Heart: RRR, no murmurs, rubs or gallops Pulm: Diminished breathsounds throughout right lung as compared to left. NO wheezing or rhonchi appreciated. Pigtail catheter to anterior R upper chest wall, sealed and applied to water seal. Abd: bowel sounds present, no tenderness to palpation, no guarding/rigidity Ext: no pedal edema Skin: warm, dry, intact - Assessment and Plan (1) Pneumothorax, acute Current Visit: Yes Status: Acute Assessment and Plan: PAtient to recieve a second chest tube via CT surg. They will remove bridget old one once the second is placed. Management of chest tube as per CT surg after placement of chest tube. (2) Tobacco abuse Current Visit: Yes Status: Chronic Assessment and Plan: Patient states he is now willign to quit smoking if it lowers his chance of having this happen again. HE does not have cravings now but worries he will when he goes home where his girlfriend smokes. Talked about possible use of nicotine patches once he is ready to leave the hospital and close follow up for decrease in patch dosage as tolerated. (3) Methamphetamine abuse Current Visit: Yes Status: Acute Assessment and Plan: + for amphetamines on admission, will try to avoid use of opiods on this admission DVT Prophylaxis: Pt ambulatory, SCDs - Time Spent with Patient Total time spent is greater than 50% in coordination of care (as documented) at patient's floor/unit and/or counseling patient: Plan of Care Discussed with: patient Internal Medicine: Result - Labs CBC & Chem 7: 05/07/18 05:43 05/07/18 05:43 - Impressions Impressions Chest X-Ray 05/10/18 06:00 IMPRESSION: Moderate-sized right-sided pneumothorax, increased in size since the prior study. The results were reported to [facility] Emerson at 8:50 a.m. on May 2018. D/ / 05/10/2018 08:24:46 Nilson Hall MD / reg Interpreting Provider: Nilson Hall MD Chest X-Ray 05/11/18 00:01 IMPRESSION: Worsened right pneumothorax despite continued presence of right-sided chest tube. No evidence for tension. The findings were sent to the Radiology Results Communication [facility] at 7:43 am on 05/11/2018to be communicated to a licensed caregiver. D/ / 05/11/2018 07:46:27 Odell Gandhi MD / be Interpreting Provider: Odell Gandhi MD Consult Discharge Plan - Plan Referrals: NONE,PCP [Primary Care Provider] - <Jalen Mabry - Last Filed: 05/11/18 10:59> Hospitalist Progress Note - Encounter Date of Encounter: 05/11/18 Time of Encounter: 10:35 - Exam Vitals: Temp Pulse Resp BP Pulse Ox 97.9 F 92 18 108/67 98 05/11/18 07:52 05/11/18 07:52 05/11/18 07:52 05/11/18 07:52 05/11/18 10:30 - Assessment and Plan (1) Pneumothorax, acute Current Visit: Yes Status: Acute (2) Tobacco abuse Current Visit: Yes Status: Chronic (3) Methamphetamine abuse Current Visit: Yes Status: Acute - Time Spent with Patient Total time spent is greater than 50% in coordination of care (as documented) at patient's floor/unit and/or counseling patient: Internal Medicine: Result - Labs CBC & Chem 7: 05/07/18 05:43 05/07/18 05:43 - Impressions Impressions Chest X-Ray 05/10/18 06:00 IMPRESSION: Moderate-sized right-sided pneumothorax, increased in size since the prior study. The results were reported to K[facility] Emerson at 8:50 a.m. on May 2018. D/ / 05/10/2018 08:24:46 Nilson Hall MD / reg Interpreting Provider: Nilson Hall MD Chest X-Ray 05/11/18 00:01 IMPRESSION: Worsened right pneumothorax despite continued presence of right-sided chest tube. No evidence for tension. The findings were sent to the Radiology Results Communication Center at 7:43 am on 05/11/2018to be communicated to a licensed caregiver. D/ / 05/11/2018 07:46:27 Odell Gandhi MD / be Interpreting Provider: Odell Gandhi MD Chest X-Ray 05/11/18 10:05 IMPRESSION: Small right apical pneumothorax and trace right lung base pneumothorax, improved. Minimal pleural effusion at the right lung base. D/ / Nilson Hall MD / Nilson Hall MD Interpreting Provider: Nilson Hall MD - Attending Attestation I saw evaluated and examined this patient and my medical decision-making was reviewed with the Resident Physician, Summer Srivastava. I agree with the documented findings, disposition and treatment plan as described except to any changes set forth below. We independently had [id number] contact with the patient. Patient seen after new chest tube was placed. Patient complaining of a lot of pain related to the procedure. On exam, patient has decreased breath sounds in right upper lobes. Heart sounds are normal. Does appear anxious and in moderate distress. Acute right-sided pneumothorax: Chest x-ray demonstrated worsening of pneumothorax today. Dr. Glasgow has placed another chest tube and removed the previous one. Patient will receive intravenous narcotic pain medications to treat acute pain. High risk for complications. History of substance abuse: We will try to keep narcotic medication use to the minimum necessary. Continue Toradol and antiemetics.
--- NOTE | 2018-05-11 10:13 | Operative Note ---
Date of procedure: 05/11/18 Was there an restaurant assistant manager present: No Estimated blood loss (cc): 5 Specimen: none Condition: stable Disposition: floor Procedure in Detail: Preoperative diagnosis. Right pneumothorax. Postoperative diagnosis. Same. Procedures. Insertion of #28 chest tube on the right. Surgeon. Dr. Israel Glasgow. The patient is a 27-year-old gentleman who has a history of addiction to heroin and amphetamines. He was also a smoker. He presented to an outside hospital with a right spontaneous pneumothorax and a small chest tube was inserted. The patient began to develop a worsening right pneumothorax despite the chest tube and so required a second, larger chest tube. Operative consent was obtained. The right chest was marked with my initials and the left chest was marked with a stop sign. The patient did receive 100 mg of IV fentanyl and 2 mg of IV Versed. He was awake and talking throughout the procedure and states that he did not feel them. After an appropriate timeout, the patient was placed with his right chest up. The area in the mid axillary line was prepped 3 with Betadine. It was then draped. The area was infiltrated with 1% lidocaine without epinephrine. A standard incision was made with a #10 blade. This was carried down to the intercostal space with a tonsil clamp. We entered the intercostal base and there was a costello of air. A #28-Turkish chest tube was inserted without difficulty. This was then sewn to the skin with 2 #0 silk sutures. The wound was then dressed and placed to 25 cm on a Pleur-evac. There was a air leak with cough. At the conclusion of the procedure, a stat portable chest x-ray was ordered and I removed the chest tube which had been placed at the outside hospital.
[2018-05-11] MEDS: *HR* HYDROmorphone 2 MG/ML SYRINGE IVP PRN ×3 (10:23→18:54)
[2018-05-11] MEDS: Sulfamethoxazole/Trimeth DS 1 EACH TABLET PO SCH ×2 (10:24→20:24)
[2018-05-11] MEDS: OXYCODONE Oral CONC 10 MG/0.5 ML ORAL.SYG SL PRN ×3 (11:49→22:48)
[2018-05-11] MEDS: *HR* OxyCODONE/APAP 5/325 TABLET PO PRN (20:30)
[2018-05-11] MEDS ORDERED: Ondansetron 4 MG/2 ML VIAL IVP ONE (22:53)
[2018-05-12] MEDS: *HR* HYDROmorphone 2 MG/ML SYRINGE IVP PRN ×3 (01:20→15:36)
[2018-05-12] MEDS: *HR* OxyCODONE/APAP 5/325 TABLET PO PRN ×3 (02:11→21:11)
[2018-05-12] MEDS: Sulfamethoxazole/Trimeth DS 1 EACH TABLET PO SCH ×2 (08:09→21:11)
--- NOTE | 2018-05-12 08:30 | Cardiothoracic Progress Note ---
Date of Encounter: 05/12/18 Time of Encounter: 08:28 - Assessment and plan (1) Pneumothorax, acute Current Visit: Yes Status: Acute We will continue chest tube suction for now. - Subjective Interval history: The patient complains of pain from his chest tube. He is receiving IV narcotics for this and has a history of amphetamine and narcotic abuse. Vital Signs, Last 4 Hours Temp Pulse Resp BP Pulse Ox 05/12/18 07:41 97.5 F L 71 17 115/78 98 Oxgyen Flow Rate Oxygen Flow Rate (LPM) 97 Clinical Data, last 8 Hours Output, Chest Tube Drainage 4 Amount [Right Lower Anterior Chest] Output, Chest Tube Drainage 7 Amount [Right Lower Anterior Chest] Weight 05/10/18 05/11/18 05/12/18 23:59 23:59 22:59 Weight 74.4 kg 75 kg Lungs are clear to percussion and auscultation. Chest tube drainage is minimal, but there is a small air leak. Chest x-ray reveals a tiny right apical pneumothorax. - Labs 05/07/18 05:43 05/07/18 05:43 Consult Discharge Plan - Plan Referrals: NONE,PCP [Primary Care Provider] -
--- NOTE | 2018-05-12 09:58 | Internal Med Progress Note ---
<FinnkaushikStivenSummer E - Last Filed: 05/12/18 09:55> Hospitalist Progress Note - Encounter Date of Encounter: 05/12/18 - Subjective Interval History: Mr. Holt is a 27 year old male who was seen at bedside today. He does not appear to be in any acute distress. He does still complain of 10/10 pain and that he cannot get a deep breath. He states the liquid oxycodone and dilaudid just are not cutting it. He states he knows he could be in the hospital until midweek (was told this by another doctor) and he is fine with that as long as he gets bridget right pain medications but that he wants different ones. - Exam Vitals: Temp Pulse Resp BP Pulse Ox 97.5 F L 71 17 115/78 98 05/12/18 07:41 05/12/18 07:41 05/12/18 07:41 05/12/18 07:41 05/12/18 07:41 Exam: General: AAOx3, answers questions appropriately HEENT: normocephalic, atraumatic, eyes normal and nonicteric, moist mucus membranes, neck supple Heart: RRR, no murmurs, rubs or gallops Pulm: CTAB. NO wheezing or rhonchi appreciated. Chest tube to R mid chest wall, sealed and applied to water seal. Abd: bowel sounds present, no tenderness to palpation, no guarding/rigidity Ext: no pedal edema Skin: warm, dry, intact - Assessment and Plan (1) Pneumothorax, acute Current Visit: Yes Status: Acute Assessment and Plan: Chest tube placed 05/11/18 to right side chest wall. Pneumothorax improved, CXR shows continued apical pnumothorax CT surg recommends keeping chest tube to water seal at this time (2) Tobacco abuse Current Visit: Yes Status: Chronic Assessment and Plan: current everyday smoker unwilling to talk abotu smoking habits today (3) Methamphetamine abuse Current Visit: Yes Status: Acute Assessment and Plan: + for amphetamines on admission, currently on opiod pain medications for pain from chest tube, will continue to reassess need for these regularly DVT Prophylaxis: Pt ambulatory, SCDs - Time Spent with Patient Total time spent is greater than 50% in coordination of care (as documented) at patient's floor/unit and/or counseling patient: Plan of Care Discussed with: patient Internal Medicine: Result - Labs CBC & Chem 7: 05/07/18 05:43 05/07/18 05:43 - Impressions Impressions Chest X-Ray 05/11/18 00:01 IMPRESSION: Worsened right pneumothorax despite continued presence of right-sided chest tube. No evidence for tension. The findings were sent to the Radiology Results Communication Center at 7:43 am on 05/11/2018to be communicated to a licensed caregiver. D/ / 05/11/2018 07:46:27 Odell Gandhi MD / be Interpreting Provider: Odell Gandhi MD Chest X-Ray 05/12/18 00:01 IMPRESSION: 1. Minimal residual right apical pneumothorax. Continued follow-up could be helpful for further evaluation. 2. No airspace opacity or evidence of pleural effusion. D/ / David Pringle / David Pringle Interpreting Provider: David Pringle Consult Discharge Plan - Plan Referrals: NONE,PCP [Primary Care Provider] - <Jalen Mabry - Last Filed: 05/12/18 12:41> Hospitalist Progress Note - Encounter Date of Encounter: 05/12/18 Time of Encounter: 11:45 - Exam Vitals: Temp Pulse Resp BP Pulse Ox 97.6 F 78 18 118/69 99 05/12/18 11:10 05/12/18 11:10 05/12/18 11:10 05/12/18 11:10 05/12/18 11:10 - Assessment and Plan (1) Pneumothorax, acute Current Visit: Yes Status: Acute (2) Tobacco abuse Current Visit: Yes Status: Chronic (3) Methamphetamine abuse Current Visit: Yes Status: Acute - Time Spent with Patient Total time spent is greater than 50% in coordination of care (as documented) at patient's floor/unit and/or counseling patient: Internal Medicine: Result - Labs CBC & Chem 7: 05/07/18 05:43 05/07/18 05:43 - Impressions Impressions Chest X-Ray 05/11/18 00:01 IMPRESSION: Worsened right pneumothorax despite continued presence of right-sided chest tube. No evidence for tension. The findings were sent to the Radiology Results Communication Center at 7:43 am on 05/11/2018to be communicated to a licensed caregiver. D/ / 05/11/2018 07:46:27 Odell Gandhi MD / be Interpreting Provider: Odell Gandhi MD Chest X-Ray 05/12/18 00:01 IMPRESSION: 1. Minimal residual right apical pneumothorax. Continued follow-up could be helpful for further evaluation. 2. No airspace opacity or evidence of pleural effusion. D/ / David Pringle / David Pringle Interpreting Provider: David Pringle - Attending Attestation I saw evaluated and examined this patient and my medical decision-making was reviewed with the Resident Physician, Summer Srivastava. I agree with the documented findings, disposition and treatment plan as described except to any changes set forth below. We independently had [id number] contact with the patient. Patient was complaining of severe pain yesterday evening as his intravenous medication was discontinued. He was then started back on IV medication but her lower frequency and also on oral Percocet in addition to his sublingual oxyco done that his receiving. He reports that the pain is still there but the pain medications are helping it. Which is in contradiction to what he is telling the nursing staff. Nursing staff also heard him on the phone making threats of harm to someone. He confronted the patient and he did express the same intention. On exam, he is awake and alert. Right-sided chest tube in place. Acute right-sided pneumothorax: Patient has minimal residual right-sided apical pneumothorax per chest x-ray. Chest tube remains connected to suction. Cardiothoracic surgery following. History of substance abuse: We will try to keep narcotic medication use to the minimum necessary. Continue current pain medication regimen. Homicidal ideation: Consulted psychiatry and social media content specialist. Moderate risk for complications.
[2018-05-12] MEDS: OXYCODONE Oral CONC 10 MG/0.5 ML ORAL.SYG SL PRN (13:04)
[2018-05-13] MEDS: *HR* OxyCODONE/APAP 5/325 TABLET PO PRN ×4 (02:41→20:15)
[2018-05-13] MEDS: OXYCODONE Oral CONC 10 MG/0.5 ML ORAL.SYG SL PRN ×3 (03:32→17:40)
[2018-05-13 06:04] LABS: Basophils % 0.5 %; Eosinophils # 0.4 K/mcL (0.0-0.6); Hematocrit 50.5 % (37.5-50.1); Hemoglobin 17.6 g/dL (12.9-16.9); Immature Granulocytes % 0.7 % (0-4); Lymphocytes # 2.4 K/mcL (0.6-4.6); Lymphocytes % 32.3 %; Mean Corpuscular HGB Conc 34.9 g/dL (31.6-35.5); Mean Corpuscular Hemoglobin 29.9 pg (28.0-33.3); Mean Corpuscular Volume 85.7 fL (83.0-100.0); Mean Platelet Volume 11.1 fL (9.4-12.4); Monocytes % 13.4 %; Neutrophils # 3.6 K/mcL (1.6-8.9); Platelet Count 200 K/mcL (140-400); Red Blood Count 5.89 M/mcL (4.19-5.50); Red Cell Distribution Width 12.2 % (11.5-14.5); Segmented Neutrophils % 48.1 %
--- NOTE | 2018-05-13 08:19 | Cardiothoracic Progress Note ---
Date of Encounter: 05/13/18 Time of Encounter: 08:17 - Assessment and plan (1) Pneumothorax, acute Current Visit: Yes Status: Acute The airleak seems to be decreasing. The patient has 3 options. We can continue to wait in the airleak will almost certainly resolve with time. The patient could have surgery, but he is strongly against this. We could send him home with a Heimlich valve on the chest tube, but he is also against this. I agree that given his lifestyle, this may not be the best option. - Subjective Interval history: The patient is anxious to go home. Vital Signs, Last 4 Hours Temp Pulse Resp BP Pulse Ox 05/13/18 04:35 98.6 F 86 16 126/56 98 Oxgyen Flow Rate Oxygen Flow Rate (LPM) 97 Clinical Data, last 8 Hours Output, Urine Amount 1,200 Weight 05/12/18 05/12/18 05/13/18 00:59 23:59 23:59 Weight 75 kg Lungs are clear to percussion and auscultation. His chest tube has minimal drainage, but does have a small air leak. Chest x-ray reveals a small apical right pneumothorax. - Labs 05/13/18 05:58 05/07/18 05:43 Lab Results, Last 24 hours 05/13/18 05:58 WBC 7.5 Hgb 17.6 H D Hct 50.5 H Plt Count 200 Consult Discharge Plan - Plan Referrals: NONE,PCP [Primary Care Provider] -
--- NOTE | 2018-05-13 09:38 | Internal Med Progress Note ---
<Pratibha Viera - Last Filed: 05/13/18 15:20> Hospitalist Progress Note - Encounter Date of Encounter: 05/13/18 Time of Encounter: 09:21 - Subjective Interval History: Mr. Holt is a 27 Yo male. Hospital day 7. Pt was seen and examined at bedside today. He states he is still having chest pain but is able to get in 1-2 deep breaths. He denies H/A, dizziness, SOB, wheezing, and nausea. He does admit to some drug cravings, but denies craving tobacco/nicotine. Pt was told he could be in the hospital until the middle of the week, he states he is okay with this, but he does not want to go home with a valve. - Exam Vitals: Temp Pulse Resp BP Pulse Ox 98.6 F 86 16 126/56 98 05/13/18 04:35 05/13/18 04:35 05/13/18 04:35 05/13/18 04:35 05/13/18 04:35 Exam: General: AAOX3, NAD, answers questions appropriately Cardiovascular: RRR, no murmurs, no rubs, no gallops Respiratory: CTAB, no wheezing, no rhonchi. Chest tube to right mid chest wall, sealed and applied to water seal Ext: no leg/pedal edema Skin: warm, dry and intact - Assessment and Plan (1) Pneumothorax, acute Current Visit: Yes Status: Acute Assessment and Plan: Second chest tube was placed in right sided chest wall 05/11/18 R sided pneumothorax has improved, CXR shows stable small right apical pneumothorax 05/13/18 Cardiothoracic recommends 3 options; continue to wait with water seal, surgery, or send home with a heimlich valve 05/13/18 pt does not want surgery or valve (2) Tobacco abuse Current Visit: Yes Status: Chronic Assessment and Plan: Pt is a current everyday smoker (3) Methamphetamine abuse Current Visit: Yes Status: Acute Assessment and Plan: Pt was positive for amphetamines upon admission Pt is taking opiod pain medication d/t chest tube, pt is being continually reassessed for need of these pain medications -dildarioid was d/c financial services associate has been consulted and talked with pt about resources for drug abuse rehabilitation (4) DVT prophylaxis Current Visit: Yes Status: Acute Assessment and Plan: on SCDs - Time Spent with Patient Total time spent is greater than 50% in coordination of care (as documented) at patient's floor/unit and/or counseling patient: Internal Medicine: Result - Labs CBC & Chem 7: 05/13/18 05:58 05/07/18 05:43 Labs: Short CBC 05/13/18 Range/Units 05:58 WBC 7.5 (4.3-11.1) K/mcL Hgb 17.6 H D (12.9-16.9) g/dL Hct 50.5 H (37.5-50.1) % Plt Count 200 (140-400) K/mcL Neutrophils # 3.6 (1.6-8.9) K/mcL - Impressions Impressions Chest X-Ray 05/13/18 00:01 IMPRESSION: Stable small right pneumothorax. D/ / Nam Varma MD / Nam Varma MD Interpreting Provider: Nam Varma MD Consult Discharge Plan - Plan Referrals: NONE,PCP [Primary Care Provider] - <Jalen Mabry - Last Filed: 05/13/18 17:05> Hospitalist Progress Note - Encounter Date of Encounter: 05/13/18 Time of Encounter: 16:57 - Exam Vitals: Temp Pulse Resp BP Pulse Ox 97.5 F L 110 16 117/69 99 05/13/18 16:33 05/13/18 16:33 05/13/18 16:33 05/13/18 16:33 05/13/18 16:33 - Assessment and Plan (1) Pneumothorax, acute Current Visit: Yes Status: Acute (2) Tobacco abuse Current Visit: Yes Status: Chronic (3) Methamphetamine abuse Current Visit: Yes Status: Acute - Time Spent with Patient Total time spent is greater than 50% in coordination of care (as documented) at patient's floor/unit and/or counseling patient: Internal Medicine: Result - Labs CBC & Chem 7: 05/13/18 05:58 05/07/18 05:43 Labs: Short CBC 05/13/18 Range/Units 05:58 WBC 7.5 (4.3-11.1) K/mcL Hgb 17.6 H D (12.9-16.9) g/dL Hct 50.5 H (37.5-50.1) % Plt Count 200 (140-400) K/mcL Neutrophils # 3.6 (1.6-8.9) K/mcL - Impressions Impressions Chest X-Ray 05/13/18 00:01 IMPRESSION: Stable small right pneumothorax. D/ / Nam Varma MD / Nam Varma MD Interpreting Provider: Nam Varma MD - Attending Attestation The history, physical exam, and medical decision making was performed by the medical student either while I was physically present and actively involved or I personally re-performed the exam and medical decision making. I have verified the accuracy of the medical student's documentation with regards to the history, physical exam findings, and medical decision making on 05/13/18 Patient states that his pain is better today. Has been compliant with treatment plan and so far. Denies any shortness of breath or palpitations. No fever or chills reported. Denies any homicidal ideation or suicidal ideation at this time. On exam, he is awake and alert. Right-sided chest tube in place. S1 and S2 are normal. Improved breath sounds in right apical region. Acute right-sided pneumothorax: Chest x-ray done today shows stable left apical pneumothorax. Chest tube in place. Cardio thoracic surgery following. History of substance abuse: Stop intravenous narcotic medication. Increase Percocet to control pain better. Homicidal ideation: Awaiting psychiatric evaluation. Denies homicidal ideation today. Moderate risk for complications.
[2018-05-13] MEDS: Sulfamethoxazole/Trimeth DS 1 EACH TABLET PO SCH (10:18)
--- NOTE | 2018-05-13 20:04 | Consult Note ---
Date of Encounter: 05/13/18 Time of Encounter: 19:30 Assessment & Recommendation (1) Methamphetamine abuse Current visit: Yes Status: Acute Assessment & Recommendation: Pt. states that he desires information about going to rehab for his meth use. (2) Substance abuse or dependence Current visit: Yes Status: Acute Assessment & Recommendation: REfer patient to [facility] inpatient or outpatient rehab for SUDS History of Present Illness Requesting Physician: Jalen Mabry MD Reason for consult: Pt. expressed homicidal thoughts toward a friend on the phone. History of present illness: Mr. Holt is a 27 year old male admitted for a spontaneous pneumothorax. Pt. had been using meth prior to the admit. Patient irritable about having to stay in bed and being hooked up to a machine. In the course of a conversation with a friend, he became upset and angry and stated he would "kill the bitch." Pt currently denies any homicidal ideation or intent to kill anyone. He states that he was angry and irritated about being in the hospital. Pt. states he has not been violent in the past. He has been in [facility] times for drugs and having a pistol. Pt. has never been arrested for assault. CC: Jalen Mabry MD Past Med Surg Social Fam HX - Past Medical History Medical history: hepatitis - Past Psychiatric History Psychiatric history: Reports: no psych history Past psychiatric history details: Pt. SUDS , but no prior psyhciatric treatment per patient. Family psychiatric history: No Family History of Suicide: None (Patient currently denies suicidal/homicidal ideation) - Social History Smoking Status: Current every day smoker Smokeless Tobacco Status: No Alcohol use: occasionally Drug use: none - Family History Mother History Unknown: Yes Father Living Status: Still Living Hx Family Endocrine Disorder: Yes (DM) Medications & Allergies No Known Home Drugs 05/06/18 [History] Allergy/AdvReac Type Severity Reaction Status Date / Time Amoxicillin Allergy Unknown See Verified 05/06/18 14:45 Comments Review of Systems Constitutional: Denies: fever, chills, weakness, weight change Eyes: Denies: eye pain, vision change Ears, Nose, Throat: Denies: ear pain, throat pain, dental pain, hearing loss, congestion Cardiovascular: Denies: chest pain, palpitations, dyspnea on exertion Respiratory: Reports: other Psychiatric: Reports: other Psychiatry Exam - Constitutional Vitals: Temp Pulse Resp BP Pulse Ox 97.5 F L 110 16 117/69 99 05/13/18 16:33 05/13/18 16:33 05/13/18 16:33 05/13/18 16:33 05/13/18 16:33 General appearance: age & developmentally appropriate, well-groomed, well- nourished - Musculoskeletal Gait: normal Station: relaxed Strength & Tone: normal for patient - Psychiatric Patient Orientation: Yes Person, Yes Time, Yes Place Level of alertness: Alert Behavior: calm, cooperative Psychomotor activity: Normal Eye Contact: Maintains Eye Contact Mood Description: Irritable Patient description of mood: Pt. describes that he is not depressed, but is irritated about being connected to machine for his pneumothorax Affect description: congruent with mood, full range Speech Volume: Normal Speech pattern: normal rate, normal rhythm, normal tone, fluent, spontaneous Language & Vocabulary: consistent with education Thought Process: Linear, Goal Oriented Thought Content: No Suicidal ideation, No Homicidal ideation, No Overt delusions Perceptual Disturbances: No Auditory hallucinations, No Visual hallucinations Attention Span Ability: Capable of Focused Attention Memory Description: Grossly Intact Patient Reliability: Reliable Historian Fund of knowledge: Yes abstraction ability, Yes aware of current events Intelligence Estimate: Average Judgment: Fair Insight: Partial Results - Labs Labs: Laboratory Last Values WBC 7.5 K/mcL (4.3-11.1) 05/13/18 05:58 RBC 5.89 M/mcL (4.19-5.50) H 05/13/18 05:58 Hgb 17.6 g/dL (12.9-16.9) H D 05/13/18 05:58 Hct 50.5 % (37.5-50.1) H 05/13/18 05:58 MCV 85.7 fL (83.0-100.0) 05/13/18 05:58 MCH 29.9 pg (28.0-33.3) 05/13/18 05:58 MCHC 34.9 g/dL (31.6-35.5) 05/13/18 05:58 RDW 12.2 % (11.5-14.5) 05/13/18 05:58 Plt Count 200 K/mcL (140-400) 05/13/18 05:58 MPV 11.1 fL (9.4-12.4) 05/13/18 05:58 Immature Gran % 0.7 % (0-4) 05/13/18 05:58 Seg Neutrophils % 48.1 % 05/13/18 05:58 Lymphocytes % 32.3 % 05/13/18 05:58 Monocytes % 13.4 % 05/13/18 05:58 Eosinophils % 5.0 % 05/13/18 05:58 Basophils % 0.5 % 05/13/18 05:58 Neutrophils # 3.6 K/mcL (1.6-8.9) 05/13/18 05:58 Lymphocytes # 2.4 K/mcL (0.6-4.6) 05/13/18 05:58 Monocytes # 1.0 K/mcL (0.0-1.3) 05/13/18 05:58 Eosinophils # 0.4 K/mcL (0.0-0.6) 05/13/18 05:58 Basophils # 0.0 K/mcL (0.0-0.2) 05/13/18 05:58 Sodium 138 mEq/L (136-145) 05/07/18 05:43 Potassium 3.7 mEq/L (3.5-5.1) 05/07/18 05:43 Chloride 106 mEq/L (98-107) 05/07/18 05:43 Carbon Dioxide 26 mEq/L (23-29) 05/07/18 05:43 BUN 9 mg/dL (6-20) 05/07/18 05:43 Creatinine 0.72 mg/dL (0.70-1.30) 05/07/18 05:43 Est GFR ( Amer) > 60 (> 60) 05/07/18 05:43 Est GFR (Non-Af Amer) > 60 (> 60) 05/07/18 05:43 BUN/Creatinine Ratio 13 (6-26) 05/07/18 05:43 Glucose 91 mg/dL (70-105) 05/07/18 05:43 Calculated Osmolality 284 (280-300) 05/07/18 05:43 Calcium 9.3 mg/dL (8.6-10.3) 05/07/18 05:43 Urine Opiates Screen Positive ng/mL (Cninbm=906) H 05/06/18 18:14 Ur Barbiturates Screen Negative ng/mL (Mzfzfn=666) 05/06/18 18:14 Ur Phencyclidine Scrn Negative ng/mL (Cutoff=25) 05/06/18 18:14 Ur Amphetamines Screen Positive ng/mL (Nuuefp=6627) H 05/06/18 18:14 U Benzodiazepines Scrn Negative ng/mL (Nortqe=310) 05/06/18 18:14 Urine Cocaine Screen Negative ng/mL (Cutoff= 300) 05/06/18 18:14 U Marijuana (THC) Screen Negative ng/mL (Cutoff = 50) 05/06/18 18:14 Ur Drug Screen Interp See Below 05/06/18 18:14 - Impressions Impressions Chest X-Ray 05/13/18 00:01 IMPRESSION: Stable small right pneumothorax. D/ / Nam Varma MD / Nam Varma MD Interpreting Provider: Nam Varma MD Consult Discharge Plan - Plan Additional Instructions: REfer patient to [facility]DS rehab Referrals: NONE,PCP [Primary Care Provider] -
[2018-05-14] MEDS: *HR* OxyCODONE/APAP 5/325 TABLET PO PRN ×6 (01:09→23:42)
[2018-05-14 05:38] LABS: Basophils # 0.1 K/mcL (0.0-0.2); Basophils % 0.8 %; Eosinophils # 0.4 K/mcL (0.0-0.6); Eosinophils % 5.2 %; Hematocrit 47.2 % (37.5-50.1); Hemoglobin 16.7 g/dL (12.9-16.9); Immature Granulocytes % 2.7 % (0-4); Lymphocytes # 3.1 K/mcL (0.6-4.6); Lymphocytes % 41.5 %; Mean Corpuscular HGB Conc 35.4 g/dL (31.6-35.5); Mean Corpuscular Hemoglobin 29.8 pg (28.0-33.3); Mean Corpuscular Volume 84.1 fL (83.0-100.0); Mean Platelet Volume 11.9 fL (9.4-12.4); Monocytes % 13.1 %; Neutrophils # 2.8 K/mcL (1.6-8.9); Nucleated Red Blood Cells 0.3 /100 WBC (0); Platelet Count 150 K/mcL (140-400); Red Blood Count 5.61 M/mcL (4.19-5.50); Red Cell Distribution Width 12.3 % (11.5-14.5); Segmented Neutrophils % 36.7 %
[2018-05-14] MEDS: OXYCODONE Oral CONC 10 MG/0.5 ML ORAL.SYG SL PRN ×4 (08:13→21:05)
--- NOTE | 2018-05-14 08:33 | Cardiothoracic Progress Note ---
Date of Encounter: 05/14/18 Time of Encounter: 08:31 - Assessment and plan (1) Pneumothorax, acute Current Visit: Yes Status: Acute The chest tube was placed to waterseal. We will check a chest x-ray tomorrow morning. - Subjective Interval history: The patient is anxious to go home. He continues to complain of pain from the chest tube, which is somewhat controlled with narcotics. Vital Signs, Last 4 Hours Temp Pulse Resp BP Pulse Ox 05/14/18 07:11 97.9 F 69 20 129/70 97 05/14/18 05:02 97.9 F 75 17 114/69 98 Oxgyen Flow Rate Oxygen Flow Rate (LPM) 97 Clinical Data, last 8 Hours Output, Urine Amount 450 Weight 05/12/18 05/13/18 05/14/18 23:59 23:59 23:59 Weight 75 kg Lungs are clear to percussion and auscultation. The chest tube drainage is minimal and there is no air leak that I can see this morning. Chest x-ray reveals a trace right apical pneumothorax. - Labs 05/14/18 05:28 05/07/18 05:43 Lab Results, Last 24 hours 05/14/18 05:28 WBC 7.5 Hgb 16.7 Hct 47.2 Plt Count 150 Consult Discharge Plan - Plan Additional Instructions: REfer patient to [facility] rehab Referrals: NONE,PCP [Primary Care Provider] -
--- NOTE | 2018-05-14 09:00 | Internal Med Progress Note ---
<MaximilianoPratibha M - Last Filed: 05/14/18 15:21> Hospitalist Progress Note - Encounter Date of Encounter: 05/14/18 Time of Encounter: 08:00 - Subjective Interval History: Mr. Holt is a 27 Yo male. Hospital day 8. Pt was seen and examined at bedside today. He states he is still having chest pain, but says he is doing better than yesterday. Pt denies H/A, dizziness, SOB, chest pain, wheezing, palpitations, and NVD. He stated that he would like to have some more pain medications. CT surg consulted with the pt this morning and recommended checking chest Xray tomorrow morning. X ray this morning showed stable trace R apical pneumothorax, improved from yesterday. - Exam Vitals: Temp Pulse Resp BP Pulse Ox 97.9 F 69 20 129/70 97 05/14/18 07:11 05/14/18 07:11 05/14/18 07:11 05/14/18 07:11 05/14/18 07:11 Exam: General: AAOX3, NAD, WDWN Cardiovascular: RRR, no murmurs, rubs or gallops Respiratory: CTAB, no wheezing, no rhonchi Abdomen: normal BSX4, soft, nontender to palpation, nondistended Extremities: no leg/pedal edema Skin: warm, dry and intact - Assessment and Plan (1) Pneumothorax, acute Current Visit: Yes Status: Acute Assessment and Plan: Second chest tube was placed in right sided chest wall 05/11/18 R sided pneumothorax has improved, CXR shows stable trace right apical pneumotho rax (5mm thickness) 05/14/18 CT surg recommends another chest X ray tomorrow morning 05/14/18 pt does not want surgery or valve (2) Tobacco abuse Current Visit: Yes Status: Chronic Assessment and Plan: Pt is a current everyday smoker (3) Methamphetamine abuse Current Visit: Yes Status: Acute Assessment and Plan: Pt was positive for amphetamines upon admission Pt is taking opiod pain medication d/t chest tube, pt is being continually reassessed for need of these pain medications -dildarioid was d/c player services representative has been consulted and talked with pt about resources for drug abuse rehabilitation Psych was consulted and recommended refer pt to inpatient or outpatient rehab for drug abuse 05/13/18 (4) DVT prophylaxis Current Visit: Yes Status: Acute Assessment and Plan: on SCDs - Time Spent with Patient Total time spent is greater than 50% in coordination of care (as documented) at patient's floor/unit and/or counseling patient: Internal Medicine: Result - Labs CBC & Chem 7: 05/14/18 05:28 05/07/18 05:43 Labs: Short CBC 05/14/18 Range/Units 05:28 WBC 7.5 (4.3-11.1) K/mcL Hgb 16.7 (12.9-16.9) g/dL Hct 47.2 (37.5-50.1) % Plt Count 150 (140-400) K/mcL Neutrophils # 2.8 (1.6-8.9) K/mcL - Impressions Impressions Chest X-Ray 05/14/18 00:01 IMPRESSION: The right-sided chest tube is stable. Stable trace right apical pneumothorax measuring up to 5 mm in thickness. D/ / Nilson Hall MD / Nilson Hall MD Interpreting Provider: Nilson Hall MD Consult Discharge Plan - Plan Additional Instructions: REfer patient to SUDS rehab Referrals: NONE,PCP [Primary Care Provider] - <Saul Lewis - Last Filed: 05/14/18 17:26> Hospitalist Progress Note - Encounter Date of Encounter: 05/14/18 - Exam Vitals: Temp Pulse Resp BP Pulse Ox 97.7 F 82 20 117/56 100 05/14/18 15:32 05/14/18 15:32 05/14/18 15:32 05/14/18 15:32 05/14/18 15:32 - Assessment and Plan (1) Pneumothorax, acute Current Visit: Yes Status: Acute (2) Tobacco abuse Current Visit: Yes Status: Chronic (3) Methamphetamine abuse Current Visit: Yes Status: Acute - Time Spent with Patient Total time spent is greater than 50% in coordination of care (as documented) at patient's floor/unit and/or counseling patient: Internal Medicine: Result - Labs CBC & Chem 7: 05/14/18 05:28 05/07/18 05:43 Labs: Short CBC 05/14/18 Range/Units 05:28 WBC 7.5 (4.3-11.1) K/mcL Hgb 16.7 (12.9-16.9) g/dL Hct 47.2 (37.5-50.1) % Plt Count 150 (140-400) K/mcL Neutrophils # 2.8 (1.6-8.9) K/mcL - Impressions Impressions Chest X-Ray 05/14/18 00:01 IMPRESSION: The right-sided chest tube is stable. Stable trace right apical pneumothorax measuring up to 5 mm in thickness. D/ / Nilson Hall MD / Nilson Hall MD Interpreting Provider: Nilson Hall MD - Attending Attestation I saw and assessed this patient and agree with plan per medical student. Patient states that his pain is better today. Exam Gen - Awake, alert, oriented x 3, no acute distress HEENT - NCAT, PERRLA, EOMI, hearing grossly intact, oropharynx benign CV - RRR, normal S1 and S2, no M/R/G, no BLE edema Resp - Normal WOB, CTAB, no W/R/R. Right-sided chest tube in place. GI - Soft, NT/ND, no masses, normal bowel sounds, Skin - Warm, dry, no rashes/lesions/ulcers Psych - Normal mood and affect, no depression or anxiety Acute right-sided pneumothorax: Chest x-ray done today shows stable left apical pneumothorax. Chest tube in place. Cardio thoracic surgery following. History of substance abuse: Stop intravenous narcotic medication. Increase Percocet to control pain better. Homicidal ideation: Awaiting psychiatric evaluation. Denies homicidal ideation today. Moderate risk for complications.
[2018-05-15] MEDS: *HR* OxyCODONE/APAP 5/325 TABLET PO PRN ×3 (05:41→11:47)
[2018-05-15 06:38] LABS: Basophils % 0.6 %; Eosinophils # 0.4 K/mcL (0.0-0.6); Eosinophils % 6.1 %; Hematocrit 46.4 % (37.5-50.1); Hemoglobin 15.4 g/dL (12.9-16.9); Immature Granulocytes % 0.3 % (0-4); Lymphocytes # 2.6 K/mcL (0.6-4.6); Lymphocytes % 39.2 %; Mean Corpuscular HGB Conc 33.2 g/dL (31.6-35.5); Mean Corpuscular Hemoglobin 29.3 pg (28.0-33.3); Mean Corpuscular Volume 88.4 fL (83.0-100.0); Mean Platelet Volume 11.2 fL (9.4-12.4); Monocytes % 14.5 %; Neutrophils # 2.7 K/mcL (1.6-8.9); Platelet Count 201 K/mcL (140-400); Red Blood Count 5.25 M/mcL (4.19-5.50); Red Cell Distribution Width 12.5 % (11.5-14.5); Segmented Neutrophils % 39.3 %
[2018-05-15 07:44] VITALS: BP 133/65
--- NOTE | 2018-05-15 08:54 | Discharge Summary ---
<Hoang lGasgow S - Last Filed: 05/15/18 11:22> - NOTES TO OUTPATIENT PROVIDER Notes to Outpatient Provider: Follow up with PCP to discuss rehab and staying clean. Follow up for NRT and smoking cessation plan. Follow up with Dr. Tonny Glasgow in the CT surgery clinic tomorrow as per recommendations. Orders not resulted at time of discharge: Pending orders 05/15/18 08:44 CXR, portable [XR chest 1V portable] [XR] Stat Date of Encounter: 05/15/18 Time of Encounter: 08:51 - Discharge Diagnosis (1) Pneumothorax, acute Priority: Primary Status: Acute (2) Tobacco abuse Priority: Secondary Status: Chronic (3) Methamphetamine abuse Priority: Secondary Status: Acute Hospital course: Mr. Holt is a 27 year old male with no significant PMH other than drug abuse of methanphetamines and tobacco. He presented on 05/06 - from [facility] for maintenace of pneumothorax - reported a 1 day hx of sudden right chest pain, worse with inspiration and intermitten in nature - had a chest tube placed and then left AMA - went home on flutter valve then came to [facility] On admission CT of the chest showed pneumothorax - pulmonology consulted - CT surgery consulted CXR #1 05/07: increased right apical pneumothorax 2.1cm --> 4.6cm, no pleural effusion or new focal consolidation CXR #2 05/07: slight decrease in right apical pneumothorax CT surgery saw the pt on 05/07 - decided to tx with chest tube suction and medical management - surgery recommended if the pt has a second episode of pneumothorax - on 05/09, chest tube placed to water seal - on 05/10 , chest tube placed back to 25cm suction discussed second chest tube placement but pt refused - on 05/11 , a second chest tube was placed and old chest tube was removed on 05/14 the second chest tube was placed to water seal on 05/15 the chest tube was pulled as detailed below This morning of 05/15 - pt had chest tube pulled by Dr. Tonny Glasgow - Stat portable CXR showed a small but slightly larger right apical pneumothorax - pt offered to stay overngith and have a recheck CXR [facility] but he wants to leave - pt to see Dr. Tonny Glasgow tomorrow afternoon and is advised to return to the ER for chest pain or shortness of breath. - received extensive counseling for tobacco cessation Follow up with Dr. Israel Glasgow in the CT surgery clinic tomorrow in the afternoon. Appointment as been made. - follow up with Dr. Brandi Cerno next thursday 05/24 - drug rehab and smoking cessation recommended Currently the pt has no complaints other than pain. He wants more pain meds. Will not be d/c the pt on any pain medications. Pt denies SOB, N/V/D, abd pain, or headache. Discharge discussed with: patient, nurse Time spent discussing smoking cessation with patient: 3 to 10 minutes - Time Spent with Patient Total time spent providing and/or coordinating discharge services: Less than 30 minutes - Discharge Medications Home Medications: No Known Home Drugs 05/06/18 [History] Allergies/Adverse Reactions: Allergy/AdvReac Type Severity Reaction Status Date / Time Amoxicillin Allergy Unknown See Verified 05/06/18 14:45 Comments Date of admission: 05/10/18 08:14 Primary care physician: PCP NONE Consults: 05/06/18 14:51 Consult to Pulmonology [CONS] Routine Consulting Provider: [facility] Reason for Consult: Right chest Pneumo, chest tube Call Completed: No 05/07/18 10:58 Consult to Cardiothoracic Surgery [CONS] Routine Consulting Provider: Cardiothoracic Surgery [facility] Reason for Consult: increased right-sided pneumothorax Time Notified: 11:00 Call Completed: Yes 05/12/18 12:34 Consult to Psychiatry [CONS] Routine Consulting Provider: Psychiatry [facility] Reason consult: Other Other reason and/or additional details: Patient expressed homicidal ideation Time Notified: 12:35 Call Completed: Yes 05/12/18 12:35 Consult to Bank Manager [CONS] Routine Reason for SW Consult: Patient expressed homicidal ideation during a phone conversation; Confirmed by nursing staff Discharging clinician: Hoang Glasgow Anticipated date of discharge: 05/15/18 - Constitutional Vitals: Temp Pulse Resp BP Pulse Ox 98 F 71 20 133/65 96 05/15/18 07:39 05/15/18 07:39 05/15/18 07:39 05/15/18 07:39 05/15/18 07:39 General appearance: Present: A&O X 3, no acute distress Exam: General: AAOX3, NAD, well developed, laying in bed Cardiovascular: RRR, no murmurs, rubs or gallops Respiratory: CTAB, no wheezing, no rhonchi Chest: chest tube pulled by Dr. Tonny Glasgow this morning Abdomen: normal BSX4, soft, nontender to palpation, nondistended Extremities: no leg/pedal edema , normal inspection Skin: warm, dry and intact - Patient Status Disposition: Home, Self-Care Condition: Fair Functional capacity at discharge: independent ambulation - Discharge Instructions Instructions: Spontaneous Pneumothorax (GEN) Follow Up With: Jose Angel Ceron DO [Resident] - 05/24/18 (Please follow up a sschedule... ) NONE,PCP [Primary Care Provider] - Israel Glasgow MD [Partnered Physician] - 05/16/18 1:00 pm (Please follow up as schedule... Dr. Glasgow Office is on the medical office [address]) Additional Instructions: REfer patient to [facility] rehab - Diet and Activity Activity: increase activity as tolerated Diet: regular diet <Saul Lewis - Last Filed: 05/15/18 12:46> Date of Encounter: 05/15/18 - Discharge Diagnosis (1) Pneumothorax, acute Status: Acute (2) Tobacco abuse Status: Chronic (3) Methamphetamine abuse Status: Acute Hospital course: Mr. Holt is a 27 year old male - Time Spent with Patient Total time spent providing and/or coordinating discharge services: Date of admission: 05/10/18 08:14 Primary care physician: PCP NONE Consults: 05/06/18 14:51 Consult to Pulmonology [CONS] Routine Consulting Provider: [facility] Reason for Consult: Right chest Pneumo, chest tube Call Completed: No 05/07/18 10:58 Consult to Cardiothoracic Surgery [CONS] Routine Consulting Provider: Cardiothoracic Surgery [place] Reason for Consult: increased right-sided pneumothorax Time Notified: 11:00 Call Completed: Yes 05/12/18 12:34 Consult to Psychiatry [CONS] Routine Consulting Provider: Psychiatry [place] Reason consult: Other Other reason and/or additional details: Patient expressed homicidal ideation Time Notified: 12:35 Call Completed: Yes 05/12/18 12:35 Consult to Bank Manager [CONS] Routine Reason for SW Consult: Patient expressed homicidal ideation during a phone conversation; Confirmed by nursing staff - Constitutional Vitals: Temp Pulse Resp BP Pulse Ox 98 F 71 20 133/65 96 05/15/18 07:39 05/15/18 07:39 05/15/18 07:39 05/15/18 07:39 05/15/18 07:39 - Attending Attestation I saw and assessed this patient and agree with discharge summary per resident. Patient states that his pain is better today. Exam Gen - Awake, alert, oriented x 3, no acute distress HEENT - NCAT, PERRLA, EOMI, hearing grossly intact, oropharynx benign CV - RRR, normal S1 and S2, no M/R/G, no BLE edema Resp - Normal WOB, CTAB, no W/R/R. Right-sided chest tube in place. GI - Soft, NT/ND, no masses, normal bowel sounds, Skin - Warm, dry, no rashes/lesions/ulcers Psych - Normal mood and affect, no depression or anxiety Acute right-sided pneumothorax: s/p chest tube removal. Stable chest xray post procedure. Will follow up outpatient with CT surgery. Counseled to go to rehab for polysubstance abuse
[2018-05-15] MEDS: OXYCODONE Oral CONC 10 MG/0.5 ML ORAL.SYG SL PRN ×2 (09:42→13:32)
--- NOTE | 2018-05-15 09:53 | Cardiothoracic Progress Note ---
Date of Encounter: 05/15/18 Time of Encounter: 09:49 - Assessment and plan (1) Pneumothorax, acute Current Visit: Yes Status: Acute The chest tube was removed. A stat portable chest x-ray revealed a small, but slightly larger right apical pneumothorax. I offered to let the patient stay overnight and check a chest x-ray tomorrow morning, but he is adamant that he wants to go home. I told him that I would see him in the office tomorrow afternoon with a chest x-ray on arrival and he has agreed to this. I told him to return to the emergency room for chest pain or shortness of breath. I again cautioned him to not smoke. He is looking into possible drug rehabilitation. - Subjective Interval history: The patient is threatening to leave the hospital AGAINST MEDICAL ADVICE. He has no specific complaints. Vital Signs, Last 4 Hours Temp Pulse Resp BP Pulse Ox 05/15/18 07:39 98 F 71 20 133/65 96 Oxgyen Flow Rate Oxygen Flow Rate (LPM) 97 Clinical Data, last 8 Hours Output, Urine Amount 725 Weight 05/13/18 05/14/18 05/15/18 23:59 23:59 23:59 Weight 75 kg 78.1 kg Lungs are clear to percussion and auscultation. The chest tube has minimal drainage and no air leak. Chest x-ray reveals a small less than 1 cm apical pneumothorax. - Labs 05/15/18 06:05 05/07/18 05:43 Lab Results, Last 24 hours 05/15/18 06:05 WBC 6.7 Hgb 15.4 Hct 46.4 Plt Count 201 Consult Discharge Plan - Plan Additional Instructions: REfer patient to [facility] rehab Referrals: Jose Angel Ceron DO [Resident] - 05/24/18 NONE,PCP [Primary Care Provider] -
--- NOTE | 2018-05-15 12:49 | Event Note ---
Date of Encounter: 05/15/18 Time of Encounter: 12:47 After the patient's chest tube was removed this morning, chest x-ray revealed a slight increase in the size of the right pneumothorax. A repeat chest x-ray done 3 hours later reveals that this pneumothorax is now improving. It is also quite small. The patient is okay for discharge from my standpoint. We have set him up to see me in the office tomorrow with a chest x-ray upon arrival. I told him to go to the emergency room if he had problems with shortness of breath or chest pain. His O2 saturation is 99 on room air. I also cautioned him to avoid smoking.
== END 2018-05-15 13:50 | disposition home or self-care (01) | DRG 200 ==
LOC: 2ANU → SUATTDRO 13:01
PROVIDERS: ADMIT Hospitalist; ATTEND Student in an Organized Health Care Education/Training Program